=== PATIENT | female | born 1960 | race Caucasian/White ===

== ENCOUNTER → 2020-03-20 | Emergency (ER) | payer OTHER ==
[~2020-03-20] MED LIST: Iopamidol 370 76% 100 ML VIAL ONE; NS 0.9% w/ 20 MEQ KCL 1,000 ML BAG ONE; Ondansetron PF 4 MG/2 ML Vial ONE
[2020-03-20 14:52] LABS: Bilirubin Negative (Negative); Blood, Urine Negative (Negative); Clarity Clear (Clear); Glucose, Urine (Dipstick) Negative (Negative); Ketone, Urine Trace mg/dL (Negative); Leukocyte Negative (Negative); Nitrite Negative (Negative); Protein, Urine (Dipstick) Negative (Neg-Trace); Specific Gravity, Urine 1.015 (1.005-1.030); Urobilinogen 0.2 mg/dL (Less than 2); pH, Urine 7.5 (5.0-9.0)
[2020-03-20 15:01] LABS: ALT (SGPT) 34 U/L (8-55); AST (SGOT) 38 U/L (5-34); Albumin 3.2 g/dL (3.5-5.0); Alkaline Phosphatase 79 U/L (40-110); Anion Gap 21 mmol/L (10-20); BUN (Urea Nitrogen) 12 mg/dL (9.8-20.1); Bilirubin, Total 0.6 mg/dL (0.2-1.2); Calc. Creatinine Clearance 0 mL/min (70-130); Calcium 8.8 mg/dL (7.8-10.44); Carbon Dioxide 24 mmol/L (22-29); Chloride 87 mmol/L (98-107); Estimated GFR-MDRD Greater than 90; Globulin 3.5 g/dL (2.4-3.5); Glucose 90 mg/dL (70-105); Lipase 239 U/L (8-78); Protein, Total 6.7 g/dL (6.0-8.3); Sodium 129 mmol/L (136-145)
[2020-03-20 15:02] LABS: Hemoglobin 13.3 g/dL (12.0-16.0); Mean Corpuscular HGB CONC 33.6 g/dL (32.0-36.0); Mean Corpuscular Hemoglobin 34.6 pg (27.0-31.0); Mean Platelet Volume 8.4 fL (7.4-10.4); Platelet Count 388 thou/uL (130-400); Red Blood Cell (RBC) Count 3.85 mill/uL (4.20-5.40); White Blood Cell (WBC) Count 17.2 thou/uL (4.8-10.8)
--- NOTE | 2020-03-20 15:04 | RAD ---
XR Chest 1 View Portable History: Chest pain Comparison: Radiograph 2 days prior Findings: No focal airspace consolidation, pneumothorax or effusion. This is scoliosis of the thoraci c spine. No acute osseous abnormality. Impression: No acute intrathoracic abnormality.
[2020-03-20 15:08] LABS: Band 17 % (5-11); Eosinophils 2 % (0-10); Lymphocytes 9 % (21-51); MDiff Complete? YES; Macrocytosis SLIGHT = 6-15 cells (100X) (0-5/hpf); Monocytes 8 % (0-10); Neutrophil 61 % (42-75); Reactive Lymphocytes 3 % (0-10); Toxic Granulation SLIGHT; Vacuoles SLIGHT
[2020-03-20 15:10] LABS: Potassium 2.7 mmol/L (3.5-5.1)
--- NOTE | 2020-03-20 16:26 | CT ---
CT Abdomen Pelvis W Con: 03/20/2020 3:42 PM CLINICAL INFORMATION: Abdominal pain and shortness of breath. COMPARISON: 03/07/2020 TECHNIQUE: Multiple contiguous axial images were obtained and a CT of the abdomen and pelvis with IV contrast. C oronal and sagittal reformats were performed. FINDINGS: Lower Chest: within normal limits. Abdomen: Liver: within normal limits. Bile Ducts: Normal caliber. Gallbladder: No calcified gallstones. Normal caliber wall. Pancreas: within normal limits. Spleen: within normal limits. Adrenals: Questionable 1.2 cm left adrenal nodule Kidneys: 4.5 cm left renal cyst Pelvis: Reproductive Organs: Status post hysterectomy. Ureters: within normal limits. Bladder: within normal limits. Peritoneum: No free air is seen. There is nonspecific presacral stranding change/edema. A small amoun t of fluid is seen anterior to the stent graft in the retroperitoneum. Bowel: Normal caliber. Mesentery and Retroperitoneum: No enlarged mesenteric or retroperitoneal lymph nodes. Vessels: Status post aortobifemoral bypass with severe atherosclerotic disease in the jackson aorta an d iliac vasculature. The bypass graft is patent without evidence of aneurysmal formation at the proximal or distal anastomoses. Severe atherosclerotic disease is seen at the distal anastomoses with the majority of flow seen in the profunda femoral arteries. Abdominal Wall: within normal limits. Bones: Degenerative changes in the spine. IMPRESSION: 1. Postsurgical changes from interval placement of aorto bifemoral bypass graft 2. Nonspecific presacral edema 3. Left renal cyst 4. Left adrenal mass
== END ==
LOC: BURERS 14:20
DX: R10.9 Unspecified abdominal pain (principal); E87.1 Hypo-osmolality and hyponatremia; E87.6 Hypokalemia; D72.829 Elevated white blood cell count, unspecified; R10.817 Generalized abdominal tenderness; I10 Essential (primary) hypertension; F41.9 Anxiety disorder, unspecified; F17.210 Nicotine dependence, cigarettes, uncomplicated
CPT/HCPCS: 71045; 74177; 80053; 81003; 83605; 83690; 83880; 84484; 85025; 94760; 99284; J2405; J3370; J3480; Q9967